=== PATIENT | male | born 1990 | race Two or more races ===

== ENCOUNTER 2019-11-12 21:08 | Emergency (ER) | payer MEDICAID ==
[~2019-11-12] VITALS: Ht 172.7 cm; Wt 68.0 kg
--- NOTE | 2019-11-12 21:25 | NUR ---
Dr. Daniel at bedside for MSE
[2019-11-12] MEDS ORDERED: IV NORMAL SALINE 1000 ML BAG IV ONE (21:45)
[2019-11-12 22:02] LABS: BASOPHILS % (AUTO) 0.3 % (0.0-2.0); EOSINOPHILS # (AUTO) 0.2 K/uL (0.0-0.7); EOSINOPHILS % (AUTO) 1.6 % (0.0-7.0); HEMATOCRIT 44.8 % (36.7-47.1); LYMPHOCYTES # (AUTO) 2.1 K/uL (20.0-40.0); LYMPHOCYTES % (AUTO) 19.2 % (20.5-51.5); MEAN CORPUSCULAR HEMOGLOBIN 32.2 uug (23.8-33.4); MEAN CORPUSCULAR HGB CONC 36 g/dL (32.5-36.3); MEAN CORPUSCULAR VOLUME 90.2 fL (73.0-96.2); MONOCYTES # (AUTO) 0.6 K/uL (2.0-10.0); MONOCYTES % (AUTO) 5.7 % (0.0-11.0); NEUTROPHILS % (AUTO) 73.2 % (38.5-71.5); PLATELET COUNT (AUTO) 317 K/uL (152-348); RED BLOOD CELL COUNT(AUTO) 4.97 MIL/uL (4.06-5.63); WHITE BLOOD COUNT (AUTO) 10.9 K/uL (3.6-10.2)
[2019-11-12 22:05] LABS: ABG BASE EXCESS 0.5 mmol/L; ABG HCO3 21.7 mmol/L; ABG PCO2 26.6 mmHg (35.0-45.0); ABG PH 7.529 (7.350-7.450); ABG PO2 111.9 mmHg (75.0-100.0); ABG TOTAL HEMOGLOBIN 15.2 G/dL (13.5-18.0); COHb 5.1 % (0.5-1.5); MetHb 0.3 % (0.0-1.5); O2Hb 93.3 % (94.0-97.0)
[2019-11-12 22:07] LABS: ABG SITE RIGHT RADIAL
[2019-11-12 22:12] LABS: CREATININE 0.8 mg/dL (0.6-1.3); POTASSIUM 4.3 mmol/L (3.5-5.1)
[2019-11-12 22:15] LABS: BILIRUBIN,TOTAL 0.3 mg/dL (0.2-1.0); TOTAL PROTEIN, SERUM 8.6 g/dL (6.4-8.2)
[2019-11-12 22:16] LABS: BILIRUBIN,DIRECT 0.1 mg/dL (0.0-0.2)
--- NOTE | 2019-11-12 23:36 | NUR ---
IV removed. Catheter intact and site benign. Pressure and 4x4 gauze applied to site. No bleeding noted. Patient discharged to home in stable conditon. Written and verbal after care instructions given. Patient verbalizes understanding of instructions. Patient ambulating with steady gait. Denies any N / V, blurred vision, dizziness, CP. NAD noted
[2019-11-13 00:06] VITALS: BP 152/93
== END 2019-11-12 23:36 | disposition home or self-care (01) ==
LOC: ER 21:11
DX: E10.65 Type 1 diabetes mellitus with hyperglycemia (principal); R20.2 Paresthesia of skin; F17.290 Nicotine dependence, other tobacco product, uncomplicated
CPT/HCPCS: 36415; 36600; 85025; A4663; J7030

== ENCOUNTER 2020-07-24 14:15 | Emergency (ER) | payer MEDICAID ==
[~2020-07-24] VITALS: Ht 170.2 cm; Wt 72.6 kg
--- NOTE | 2020-07-24 14:18 | NUR ---
[email or web address], medical screening exam in progress
[2020-07-24] MEDS ORDERED: KETOROLAC TROMETHAMINE 15 MG INJ IM ONE (14:30)
[2020-07-24] MEDS ORDERED: KETOROLAC TROMETHAMINE 15 MG INJ ONE (14:30)
--- NOTE | 2020-07-24 16:58 | NUR ---
IV removed. Catheter intact and site benign. Pressure and 4x4 gauze applied to site. No bleeding noted. Patient discharged to home in stable condition with brisk steady gait. Written and verbal after care instructions given to patient. Patient verbalizes understanding and compliance of instructions. Stressed follow up with his primary doctor from [facility]/ internal medicine doctor/ family medicine doctor or return to ER for worsening s/s.
[2020-07-24] MEDS ORDERED: IV NORMAL SALINE 1000 ML BAG IV ONE (17:00)
== END 2020-07-24 17:02 | disposition home or self-care (01) ==
LOC: ER 14:15
DX: M25.511 Pain in right shoulder (principal); R20.2 Paresthesia of skin; Z91.14 Patient's other noncompliance with medication regimen; E10.65 Type 1 diabetes mellitus with hyperglycemia; I10 Essential (primary) hypertension
CPT/HCPCS: 71045; 73030; 82962 ×2; 96360; 96372; 99284; J1885; A4663; J7030